=== PATIENT | male | born 1950 | race Caucasian/White ===

== ENCOUNTER → 2021-12-16 | Outpatient (CLI) | payer MEDICARE ==
--- NOTE | 2021-12-16 16:19 | Diagnostic Imaging Report ---
PROCEDURE: US carotid duplex, bilateral. TECHNIQUE: Multiple real-time grayscale images were obtained over the carotid arteries in various projections, bilaterally. Additional spectral analysis and color Doppler duplex images were also obtained. INDICATION: None given. FINDINGS: There is significant plaquing identified in the distal common carotid arteries and carotid bulbs extending into the proximal internal carotid arteries. There is some velocity elevation in the right common carotid artery reaching 200 cm/s. There is elevation in the left common carotid artery reaching 130 cm/s. Velocities within the internal carotid artery are normal. Both vertebral arteries show antegrade flow. IMPRESSION: Moderate bilateral carotid plaque. Velocity measurements in the common carotid arteries are consistent with 50 to 69% diameter stenosis. No ICA stenosis is detected. Parameters based on the consensus panel Flores-Scale and Doppler ultrasound criteria published April 2003, Radiology, Volume 229. DOPPLER (peak systolic velocity M/S Right Left CCA 2.0 1.3 ICA Proximal 1.1 .80 ICA Mid .73 .70 ICA Distal .74 .55 RATIO .55 .59 ECA 1.2 .84 VERT .63 .33 Dictated by: Dictated on workstation # [id number]
== END ==
LOC: RAD 13:41
PROVIDERS: ATTEND Family Medicine
DX: I65.23 Occlusion and stenosis of bilateral carotid arteries (principal)
CPT/HCPCS: 93880